=== PATIENT | male | born 1975 | race Caucasian/White ===

== ENCOUNTER 2017-05-25 18:12 | Emergency (ER) | payer OTHER ==
[~2017-05-25] VITALS: Ht 177.8 cm; Wt 136.0 kg
[2017-05-25 18:14] VITALS: BP 194/104; PULSE 109; RESP 24; TEMP 103; O2SAT 94
[2017-05-25 18:38] VITALS: BP 163/105; PULSE 108; RESP 24; O2SAT 92
[2017-05-25] MEDS ORDERED: CEFEPIME INJ 2,000 MG in SODIUM CHLORIDE 0.9% INJ 100 ML IV STA (18:39)
[2017-05-25] MEDS ORDERED: SODIUM CHLOR 0.9% 1000 ML INJ 1,000 ML IV ONE ×2 (18:39)
[2017-05-25] MEDS ORDERED: ACETAMINOPHEN 325 MG TAB PO ONE (18:45)
[2017-05-25] MEDS ORDERED: ONDANSETRON HCL 4 MG/2 ML VIAL IV PUSH ONE (18:45)
--- NOTE | 2017-05-25 19:13 | PD ---
Physical Exam Date Seen by Provider: May 25, 2017 Time Seen by Provider: 19:11 Narrative The patient is a 41-year-old male was initially evaluated by the previous physician, Dr. Bess. Please refer to the initial history, physical, diagnostic evaluation, and treatment modality plan. The patient signed out at 7 PM laboratory evaluation and CT of the abdomen and pelvis pending for possible infected kidney stone with underlying sepsis. Data Data Last Documented VS Vital Signs Date Time Temp Pulse Resp B/P (MAP) Pulse Ox O2 Delivery O2 Flow Rate FiO2 05/25/17 21:25 105 23 197/92 (127) 95 Nasal Cannula 2.00 05/25/17 18:14 103.0 Orders Orders Sepsis Workup Initiated (05/25/17 ) Complete Blood Count With Diff (05/25/17 18:39) Comprehensive Metabolic Panel (05/25/17 18:39) Lactic Acid Sepsis Protocol (05/25/17 18:39) Urinalysis - C+S If Indicated (05/25/17 18:39) Influenzae A/B Antigen (05/25/17 18:39) Blood Culture (05/25/17 18:39) Chest, Single Ap (05/25/17 18:39) Blood Glucose (05/25/17 18:39) Ecg Monitoring (05/25/17 18:39) Iv Access Insert/Monitor (05/25/17 18:39) Oximetry (05/25/17 18:39) Oxygen Administration (05/25/17 18:39) Acetaminophen (Tylenol) (05/25/17 18:45) Ondansetron Inj (Zofran Inj) (05/25/17 18:45) Cefepime Inj (Maxipime Inj) (05/25/17 18:39) Sodium Chlor 0.9% 1000 Ml Inj (Ns 1000 M (05/25/17 18:39) Sodium Chlor 0.9% 1000 Ml Inj (Ns 1000 M (05/25/17 18:39) Ct Abd/Pel W/O Iv Contrast (05/25/17 ) Labs Laboratory Tests Test 05/25/17 19:05 05/25/17 19:30 05/25/17 21:18 White Blood Count 6.7 TH/MM3 Red Blood Count 4.56 MIL/MM3 Hemoglobin 13.2 GM/DL Hematocrit 38.9 % Mean Corpuscular Volume 85.3 FL Mean Corpuscular Hemoglobin 29.0 PG Mean Corpuscular Hemoglobin Concent 34.0 % Red Cell Distribution Width 13.2 % Platelet Count 219 TH/MM3 Mean Platelet Volume 8.4 FL Neutrophils (%) (Auto) 68.2 % Lymphocytes (%) (Auto) 17.8 % Monocytes (%) (Auto) 13.1 % Eosinophils (%) (Auto) 0.6 % Basophils (%) (Auto) 0.3 % Neutrophils # (Auto) 4.5 TH/MM3 Lymphocytes # (Auto) 1.2 TH/MM3 Monocytes # (Auto) 0.9 TH/MM3 Eosinophils # (Auto) 0.0 TH/MM3 Basophils # (Auto) 0.0 TH/MM3 CBC Comment DIFF FINAL Differential Comment Blood Urea Nitrogen 11 MG/DL Creatinine 1.02 MG/DL Random Glucose 118 MG/DL Total Protein 7.5 GM/DL Albumin 3.3 GM/DL Calcium Level 8.3 MG/DL Alkaline Phosphatase 112 U/L Aspartate Amino Transf (AST/SGOT) 127 U/L Alanine Aminotransferase (ALT/SGPT) 146 U/L Total Bilirubin 0.8 MG/DL Sodium Level 135 MEQ/L Potassium Level 4.3 MEQ/L Chloride Level 99 MEQ/L Carbon Dioxide Level 28.5 MEQ/L Anion Gap 8 MEQ/L Estimat Glomerular Filtration Rate 80 ML/MIN Urine Color YELLOW Urine Turbidity CLEAR Urine pH 7.0 Urine Specific [place] 1.008 Urine Protein NEG mg/dL Urine Glucose (UA) NEG mg/dL Urine Ketones NEG mg/dL Urine Occult Blood NEG Urine Nitrite NEG Urine Bilirubin NEG Urine Urobilinogen LESS THAN 2.0 MG/DL Urine Leukocyte Esterase NEG Urine RBC 1 /hpf Urine WBC 1 /hpf Urine Squamous Epithelial Cells <1 /hpf Microscopic Urinalysis Comment CATH-CULT NOT IND Lactic Acid Level 0.8 mmol/L [facility] Medical Record Reviewed: Yes Supervised Visit with MILTON: No Interpretation(s) Laboratory Tests Test 05/25/17 19:05 05/25/17 19:30 05/25/17 21:18 White Blood Count 6.7 TH/MM3 Red Blood Count 4.56 MIL/MM3 Hemoglobin 13.2 GM/DL Hematocrit 38.9 % Mean Corpuscular Volume 85.3 FL Mean Corpuscular Hemoglobin 29.0 PG Mean Corpuscular Hemoglobin Concent 34.0 % Red Cell Distribution Width 13.2 % Platelet Count 219 TH/MM3 Mean Platelet Volume 8.4 FL Neutrophils (%) (Auto) 68.2 % Lymphocytes (%) (Auto) 17.8 % Monocytes (%) (Auto) 13.1 % Eosinophils (%) (Auto) 0.6 % Basophils (%) (Auto) 0.3 % Neutrophils # (Auto) 4.5 TH/MM3 Lymphocytes # (Auto) 1.2 TH/MM3 Monocytes # (Auto) 0.9 TH/MM3 Eosinophils # (Auto) 0.0 TH/MM3 Basophils # (Auto) 0.0 TH/MM3 CBC Comment DIFF FINAL Differential Comment Blood Urea Nitrogen 11 MG/DL Creatinine 1.02 MG/DL Random Glucose 118 MG/DL Total Protein 7.5 GM/DL Albumin 3.3 GM/DL Calcium Level 8.3 MG/DL Alkaline Phosphatase 112 U/L Aspartate Amino Transf (AST/SGOT) 127 U/L Alanine Aminotransferase (ALT/SGPT) 146 U/L Total Bilirubin 0.8 MG/DL Sodium Level 135 MEQ/L Potassium Level 4.3 MEQ/L Chloride Level 99 MEQ/L Carbon Dioxide Level 28.5 MEQ/L Anion Gap 8 MEQ/L Estimat Glomerular Filtration Rate 80 ML/MIN Urine Color YELLOW Urine Turbidity CLEAR Urine pH 7.0 Urine Specific [place] 1.008 Urine Protein NEG mg/dL Urine Glucose (UA) NEG mg/dL Urine Ketones NEG mg/dL Urine Occult Blood NEG Urine Nitrite NEG Urine Bilirubin NEG Urine Urobilinogen LESS THAN 2.0 MG/DL Urine Leukocyte Esterase NEG Urine RBC 1 /hpf Urine WBC 1 /hpf Urine Squamous Epithelial Cells <1 /hpf Microscopic Urinalysis Comment CATH-CULT NOT IND Lactic Acid Level 0.8 mmol/L Last Impressions Chest X-Ray 05/25/17 1839 Signed Impressions: Service Date/Time: Thursday, May 25, 2017 18:58 - CONCLUSION: The lungs are clear. Kyle Lemus MD Abdomen/Pelvis CT 05/25/17 0000 Signed Impressions: Service Date/Time: Thursday, May 25, 2017 19:34 - CONCLUSION: Multiple nonobstructing bilateral renal stones measuring up to 12 mm in size. Kyle Lemus MD Date/Time Source Procedure Growth Status 05/25/17 19:25 Blood Peripheral Aerobic Blood Culture Pending Received 05/25/17 19:25 Blood Peripheral Anaerobic Blood Culture Pending Received 05/25/17 19:05 Blood Peripheral Aerobic Blood Culture Pending Received 05/25/17 19:05 Blood Peripheral Anaerobic Blood Culture Pending Received 05/25/17 20:43 Nasal Washing Influenza Types A,B Antigen (ANGY) - Final NEGATIVE FOR FLU A AND B ANTIGEN.... Complete Differential Diagnosis Differential diagnosis includes sepsis, nephrolithiasis, pyelonephritis, infected kidney stone, dehydration, electrolyte abnormality, bacteremia, septicemia. Narrative Course The patient was initially evaluated by the previous physician, please refer to the initial history, physical, diagnostic evaluation, and treatment modality plan. The patient was signed out at [address] the abdomen and pelvis pending , UA pending, and workup for sepsis for possible infected kidney stone. The patient was administered IV fluids, cefepime, Tylenol, and Zofran by the previous physician. CT reveals nephrolithiasis, but no ureteral calculus. Chest x-ray reveals no pneumonia. UA is unremarkable. Influenza is negative. Blood cultures are pending. The patient's lactic acid is unremarkable, white count is normal, however, there is elevated monocytes. I did advise the patient he may have an underlying viral syndrome and/or mononucleosis from [place] virus. 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 He is advised to continue the antibiotics that he started for his urinary tract infection a diagnosed several days ago. Sepsis Criteria SIRS Criteria (2 or more): Temp > 100.9 or < 96.8, Heart rate over 90 Diagnosis Primary Impression: Febrile illness Additional Impression: Hypertension Qualified Codes: I10 - Essential (primary) hypertension Patient Instructions: General Instructions Additional Instruction: Continue antibiotics as previously directed. Plenty fluids to stay hydrated. Work excuse for 4 days. If symptoms persist after 7 days, you may benefit from a Monospot for possible mononucleosis. Please provide the patient a copy of his lab results and CT results at discharge. Patient requested Monopril refill , therefore, was refilled for Monopril 40 mg daily. Med/Other Pt SpecificInfo: Prescription(s) given Scripts Fosinopril (Fosinopril) 40 Mg Tab 40 MG PO DAILY, #30 TAB 1 Refill Prov: Gorge Berry MD 05/25/17 Disposition: 01 DISCHARGE HOME Condition: Stable Gorge Berry MD May 25, 2017 19:13
--- NOTE | 2017-05-25 19:18 | PD ---
HPI Chief Complaint: Complaint Time Seen by Provider: 18:33 Travel History International Travel<30 days: No Contact w/Intl Traveler<30days: No Traveled to known affect area: No History of Present Illness HPI Patient is a 41 year old male who comes in complaining of fever. He says he was seen at [facility] 3 days ago and was diagnosed with a UTI and renal stones. He was discharged with prescriptions for Keflex, Zofran, Toradol. He says he has been taking these, but seems to be getting worse. He says his temperature was 102.8 at home. He reports feeling weak and having a headache. He has had renal stones in the past and required stenting. He denies congestion, SOB, cough. He took Ibuprofen at home without relief of his symptoms. [facility] Past Medical History Gout: Yes Hypertension: Yes Immunizations Current: Yes Tetanus Vaccination: Unknown Influenza Vaccination: No Past Surgical History Genitourinary Surgery: Yes (lithotripsy) Tonsillectomy: Yes Social History Alcohol Use: Yes (rarely) Tobacco Use: No Substance Use: No Allergies-Medications (Allergen,Severity, Reaction): Coded Allergies: No Known Allergies (Verified Allergy, Mild, 07/16/03) Reported Meds & Prescriptions Reported Meds & Active Scripts Active No Active Prescriptions or Reported Medications Review of Systems Except as stated in HPI: all other systems reviewed are Neg General / Constitutional: No: Fever, Chills HENT: Positive: Headaches, Lightheadedness Cardiovascular: No: Chest Pain or Discomfort Respiratory: No: Shortness of Breath Gastrointestinal: Positive: Nausea Musculoskeletal: No: Myalgias, Edema Skin: No Rash, No Itching, No Change in Pigmentation Neurologic: No: Weakness, Dizziness Physical Exam Narrative GENERAL: Awake and alert, in no acute distress. SKIN: Focused skin assessment warm/dry. HEAD: Atraumatic. Normocephalic. EYES: Pupils equal and round. No scleral icterus. ENT: Mucous membranes pink and moist. NECK: Trachea midline. No JVD. CARDIOVASCULAR: Regular rate and rhythm. No murmur appreciated. RESPIRATORY: No accessory muscle use. Clear to auscultation. Breath sounds equal bilaterally. GASTROINTESTINAL: Abdomen soft, non-tender, nondistended. No CVA tenderness. MUSCULOSKELETAL: No obvious deformities. No clubbing. No cyanosis. No edema. NEUROLOGICAL: Awake and alert. No obvious cranial nerve deficits. Motor grossly within normal limits. Normal speech. PSYCHIATRIC: Appropriate mood and affect; insight and judgment normal. Data Data Last Documented VS Vital Signs Date Time Temp Pulse Resp B/P (MAP) Pulse Ox O2 Delivery O2 Flow Rate FiO2 05/25/17 18:43 95 Nasal Cannula 2.00 05/25/17 18:38 108 24 163/105 (124) 05/25/17 18:14 103.0 Orders Orders Sepsis Workup Initiated (05/25/17 ) Complete Blood Count With Diff (05/25/17 18:39) Comprehensive Metabolic Panel (05/25/17 18:39) Lactic Acid Sepsis Protocol (05/25/17 18:39) Urinalysis - C+S If Indicated (05/25/17 18:39) Influenzae A/B Antigen (05/25/17 18:39) Blood Culture (05/25/17 18:39) Chest, Single Ap (05/25/17 18:39) Blood Glucose (05/25/17 18:39) Ecg Monitoring (05/25/17 18:39) Iv Access Insert/Monitor (05/25/17 18:39) Oximetry (05/25/17 18:39) Oxygen Administration (05/25/17 18:39) Acetaminophen (Tylenol) (05/25/17 18:45) Ondansetron Inj (Zofran Inj) (05/25/17 18:45) Cefepime Inj (Maxipime Inj) (05/25/17 18:39) Sodium Chlor 0.9% 1000 Ml Inj (Ns 1000 M (05/25/17 18:39) Sodium Chlor 0.9% 1000 Ml Inj (Ns 1000 M (05/25/17 18:39) Ct Abd/Pel W/O Iv Contrast (05/25/17 ) MDM Medical Decision Making Medical Screen Exam Complete: Yes Emergency Medical Condition: Yes Differential Diagnosis UTI versus renal stone versus pyelonephritis Narrative Course Patient is a 41-year-old male who comes in complaining of fever and headache. He is diagnosed the UTI and renal stone 3 days ago, but has not been getting better. IV established, labs sent. Patient given IV fluids, Toradol, Tylenol, cefepime, Zofran. Signed out to Dr. Berry to follow up testing and disposition the patient. Scripts No Active Prescriptions or Reported Meds Condition: Lizzie Deleon MD May 25, 2017 19:18
--- NOTE | 2017-05-25 19:38 | RADRPT ---
EXAM DATE/TIME: 05/25/2017 18:58 [facility] COMPARISON: No previous studies available for comparison. INDICATIONS : Fever. MEDICAL HISTORY : None. SURGICAL HISTORY : None. ENCOUNTER: Initial ACUITY: 2 days PAIN SCORE: 0/10 LOCATION: Bilateral chest FINDINGS: A single view of the chest demonstrates the lungs to be symmetrically aerated without evidence of mas s, infiltrate or effusion. The cardiomediastinal contours are unremarkable. Osseous structures are intact. CONCLUSION: The lungs are clear. Kyle Lemus MD on May 25, 2017 at 19:36 Board Certified Radiologist. This report was verified electronically.
--- NOTE | 2017-05-25 20:13 | RADRPT ---
EXAM DATE/TIME: 05/25/2017 19:34 [facility] COMPARISON: No previous studies available for comparison. INDICATIONS : Fever with recent UTI and renal stones. ORAL CONTRAST: No oral contrast ingested. RADIATION DOSE: 17.13 CTDIvol (mGy) MEDICAL HISTORY : Renal calculi. Hypertension. SURGICAL HISTORY : None. ENCOUNTER: Initial ACUITY: 4 - 6 days PAIN SCALE: 8/10 LOCATION: Bilateral flank TECHNIQUE: Renal colic protocol. Volumetric scanning of the abdomen and pelvis was performed. Using automated exposure control and adjustment of the mA and/or kV according to patient size, radiation dose was kep t as low as reasonably achievable to obtain optimal diagnostic quality images. DICOM format image da ta is available electronically for review and comparison. FINDINGS: There is out of field artifact on the images due to patient's size exceeding the field of view the ga ntry. Right side: Multiple calcified renal stones in upper and lower pole collecting system measuring up to 11 mm in si ze. No evidence of hydronephrosis. The right ureter is normal in dimension. No stones in the right ureter. Left side: Multiple calcified stones in the upper and lower pole collecting system measuring up to 13 mm in size . No hydronephrosis. No calcified stones in the left ureter. Bladder: Nondistended. No calcifications within the lumen. Other: Multiple sigmoid diverticula without radiographic evidence of diverticulitis. No evidence of free fl uid. The abdominal aorta is normal in dimension. CONCLUSION: Multiple nonobstructing bilateral renal stones measuring up to 12 mm in size. Kyle Lemus MD on May 25, 2017 at 20:09 Board Certified Radiologist. This report was verified electronically.
[2017-05-25 20:20] VITALS: TEMP 100
[2017-05-25 20:30] LABS: AUTOMATED NEUTROPHIL # 4.5 TH/MM3 (1.8-7.7); BASOPHIL % 0.3 % (0.0-2.0); EOSINOPHIL % 0.6 % (0.0-4.0); HEMATOCRIT 38.9 % (39.0-51.0); HEMOGLOBIN 13.2 GM/DL (13.0-17.0); LYMPH % 17.8 % (9.0-44.0); LYMPHOCYTE # 1.2 TH/MM3 (1.0-4.8); MEAN CELL VOLUME 85.3 FL (80.0-100.0); MEAN PLATELET VOLUME 8.4 FL (7.0-11.0); MONO % 13.1 % (0.0-8.0); MONOCYTE # 0.9 TH/MM3 (0-0.9); NEUT % 68.2 % (16.0-70.0); PLATELET COUNT 219 TH/MM3 (150-450); RED BLOOD COUNT 4.56 MIL/MM3 (4.50-5.90); RED CELL DISTRIBUTION WIDTH 13.2 % (11.6-17.2); WHITE BLOOD COUNT 6.7 TH/MM3 (4.0-11.0)
[2017-05-25 20:30] LABS: BILIRUBIN, URINE NEG (NEG); BLOOD, URINE NEG (NEG); GLUCOSE,URINE NEG (NEG); KETONE, URINE NEG (NEG); NITRITE,URINE NEG (NEG); SQUAMOUS EPITHELIAL CELL URINE <1 /hpf (0-5); URINE COLOR YELLOW (YELLW/STRAW); URINE LEUKOCYTE ESTERASE NEG (NEG)
[2017-05-25 20:57] LABS: ALKALINE PHOSPHATASE 112 U/L (45-117); ALT (GPT) 146 U/L (12-78); TOTAL BILIRUBIN ADULT 0.8 MG/DL (0.2-1.0); TOTAL PROTEIN 7.5 GM/DL (6.4-8.2)
[2017-05-25 20:58] LABS: ALBUMIN 3.3 GM/DL (3.4-5.0); AST (GOT) 127 U/L (15-37); BICARBONATE 28.5 MEQ/L (21.0-32.0); BLOOD UREA NITROGEN 11 MG/DL (7-18); CALCIUM 8.3 MG/DL (8.5-10.1); CHLORIDE 99 MEQ/L (98-107); CREATININE 1.02 MG/DL (0.60-1.30); GLOMERULAR FILTRATION RATE 80 ML/MIN (>89); GLUCOSE,RANDOM 118 MG/DL (74-106); SODIUM (NA) 135 MEQ/L (136-145)
[2017-05-25 21:25] VITALS: BP 197/92; PULSE 105; RESP 23; O2SAT 95
[2017-05-25] MEDS ORDERED: FOSI40TA PO (22:25)
== END 2017-05-25 23:05 | disposition home or self-care (01) ==
LOC: NEPC 18:12
DX: R50.9 Fever, unspecified (principal); I10 Essential (primary) hypertension; N20.0 Calculus of kidney
CPT/HCPCS: 71010; 74176; 80053; 81001; 83605; 85025; 87040; 87804; 96374; 96375; 99285; J0692; J2405; J7030